=== PATIENT | female | born 1950 | race American Indian/Alaskan Native ===

== ENCOUNTER 2020-01-26 21:35 | Emergency (ER) | payer OTHER ==
[2020-01-26 21:42] VITALS: BMI 39.1
--- OUTSIDE RECORDS SUMMARY | 2020-01-26 21:53 | XMS ---
:1950 Author Organization [facility] Support Name Relationship Address Phone RE Unavailable Unavailable Unavailable WAYLON FULTON DAUGHTER [address] [place] [address] Re-disclosure Warning The records that you are about to access may contain information from federally- assisted alcohol or drug abuse programs. If such information is present, then the following federally mandated warning applies: This information has been disclosed to you from records protected by federal confidentiality rules (42 CFR part 2). The federal rules prohibit you from making any further disclosure of this information unless further disclosure is expressly permitted by the written consent of the person to whom it pertains or as otherwise permitted by 42 CFR part 2. A general authorization for the release of medical or other information is NOT sufficient for this purpose. The Federal rules restrict any use of the information to criminally investigate or prosecute any alcohol or drug abuse patient.The records that you are about to access may contain highly sensitive health information, the redisclosure of which is protected by Article 27-F of the [facility] Public Health law. If you continue you may haveaccess to information: Regarding HIV / AIDS; Provided by facilities licensed or operated by the [facility] Office of Mental Health; or Provided by the [facility] Office for People With Developmental Disabilities. If such information is present, then the following [facility] mandated warning applies: This information has been disclosed to you from confidential records which are protected by state law. State law prohibits you from making any further disclosure of this information without the specific written consent of the person to whom it pertains, or as otherwise permitted by law. Any unauthorized further disclosure in violation of state law may result in a fine or custodial sentence or both. A general authorization for the release of medical or other information is NOT sufficient authorization for further disclosure. Insurance Providers Payer name Policy type Policy ID Covered Covered libertarian's Policy P hipolito / Coverage libertarian ID relationship to [employer] ormation type caba HIP MEDICARE [id number] VIP 1 MED[place]ID [place] [id number] [place] MED[place] [id number] A PART B [facility]
--- NOTE | 2020-01-26 22:55 | PDOC ---
Attending Attestation - Resident Resident Name: LucasJustin - ED Attending Attestation I have performed the following: I have examined & evaluated the patient, The case was reviewed & discussed with the resident, I agree w/resident's findings & plan - HPI HPI: 01/27/20 02:11 see resident hpi - Physicial Exam PE: 01/27/20 02:11 see resident exam - Medical Decision Making 01/27/20 02:11 69-year-old female with history of asthma, morbid obesity and lymphoma complaining of shortness of breath and cough x1 day Patient is improved after duo nebs and IV Solu-Medrol Lung exam on reevaluation yields no wheezing though patient has fine rales throughout We will perform CTA of the chest to rule out PE versus fibrosis versus Covid Patient is feeling much better and requesting discharge, will plan for possible DC pending CT results Discharge - Discharge Information Problems reviewed: Yes Clinical Impression/Diagnosis: Acute dyspnea - Follow up/Referral Referrals: Rosa Aparicio MD [Primary Care Provider] - - Patient Discharge Instructions - Post Discharge Activity
[2020-01-26] MEDS ORDERED: ALBUTEROL SO4 2.5/IPRATROPIUM 0.5 INH SOL 3 ML VIAL.NEB. NEB ONE ×2 (23:01→23:31)
[2020-01-26] MEDS ORDERED: methylPREDNISolone NA SUCC 125 MG/2 ML VIAL IVPUSH ONE (23:12)
--- NOTE | 2020-01-26 23:22 | PDOC ---
History of Present Illness - General Chief Complaint: Shortness of Breath Stated Complaint: SOB Time Seen by Provider: 01/26/20 22:54 History Source: Patient Exam Limitations: No Limitations - History of Present Illness Initial Comments: 01/26/20 23:20 69F with hx.o DM, asthma presents to ED for SOB and wheezing. She began having SOB, wheezing and cough today, unprovoked, improved with home inhaler. The pt contacted her PCP, who suggested that she should be evaluated in the ED. She reports some mild SOB and wheezing currently. Denies CP, LE edema, orthopnea, PND, or hx/o DVT/PE. Allergies: NKDA Tob/Etoh/Rec drugs: neg x3, never smoker PCP: ROS: HEENT: No sinus congestion. No sore throat. CARDIOVASCULAR: No chest pain or shortness of breath RESPIRATORY: +cough, +wheezing GASTROINTESTINAL: No nausea, vomiting, diarrhea or constipation. HEMATOLOGIC/LYMPHATIC: No history of blood clots. PE: GENERAL: AOx3; no apparent distress ENT: moist mucosa, oropharynx clear without exudates CARDIO: RRR, normal S1/S2, no murmurs, rubs, or gallops. LUNGS: No distress, speaks full sentences, CTA bilaterally ABDOMEN: Soft, nontender. No guarding, no rebound. No masses EXTREMITIES: mild LE nonpitting edema, R>L. Pain posterior right knee. SKIN: Warm, Dry, normal turgor. No rashes or lesions noted Assessment and Plan 1. asthma exacerbation 2. ACS r/o 3. PNA 4. DVT r/o Justin Zavala, PGY1 Emergency Medicine Past History - Medical History Allergies/Adverse Reactions: Allergies Allergy/AdvReac Type Severity Reaction Status Date / Time No Known Allergies Allergy Verified 01/26/20 21:42 Home Medications: Ambulatory Orders Bisacodyl [Dulcolax] 5 mg PO PRN PRN 03/05/13 Ca Cmb No.1/Vit D3/B-6/FA/B12 [Vitamin D3 1,000 Unit Tablet] 1 cap PO DAILY 03/05/13 Glipizide [Glipizide Xl] 5 mg PO DAILY 03/05/13 Lisinopril [Prinivil] 20 mg PO DAILY 03/05/13 Polyethylene Glycol 3350 [Miralax 255 gm Btl -] 17 gm PO DAILY 03/05/13 Simvastatin [Zocor -] 40 mg PO HS 03/05/13 metFORMIN HCL [Glucophage -] 500 mg PO DAILY 03/05/13 Pantoprazole Sodium 40 mg PO DAILY #0 tablet. 03/08/13 Cod Liver Oil 1 each PO DAILY 03/31/13 Ibuprofen [Motrin -] 800 mg PO TID PRN #0 04/01/13 Polyethylene Glycol 3350 [Miralax 255 gm Btl] 17 gm PO DAILY #1 bottle 04/01/13 Methylprednisolone [Medrol Dose Alfredo] 4 mg PO ASDIR #21 tablet 01/27/20 Anemia: Yes Asthma: Yes (NO RECENT ATTACK) Cancer: No Cardiac Disorders: No CVA: No COPD: Yes CHF: No Dementia: No Diabetes: Yes GI Disorders: Yes (GERD) Disorders: No HTN: Yes Hypercholesterolemia: Yes Liver Disease: No Seizures: No Thyroid Disease: No - Surgical History Abdominal Surgery: No Appendectomy: No Cardiac Surgery: No Cholecystectomy: No Lung Surgery: No Neurologic Surgery: No Orthopedic Surgery: Yes (TOTAL LEFT KNEE REPLACEMENT-lt) - Psycho-Social/Smoking History Smoking History: Never smoked - Substance Abuse Hx (Audit-C & DAST Scrn) How often the patient has a drink containing alcohol: Never Score: In Men: 4 or > Positive; In Women: 3 or > Positive: 0 Screen Result (Pos requires Nsg. Audit-10AR): Negative In the last yr the pt used illegal drug/Rx for NonMed reason: No Score: Yes response is considered Positive: 0 Screen Result (Positive result requires Nsg. DAST-10): Negative *Physical Exam - Vital Signs Last Vital Signs Temp Pulse Resp BP Pulse Ox 98.6 F 88 18 146/80 100 01/26/20 21:40 01/26/20 21:40 01/26/20 21:40 01/26/20 21:40 01/26/20 21:40 ED Treatment Course - LABORATORY CBC & Chemistry Diagram: 01/26/20 00:35 01/26/20 00:35 Medical Decision Making - Medical Decision Making 01/27/20 00:33 69F p/w wheezing, SOB, cough. On exam, lungs CTA, pt had mild LE edema R>L with posterior knee tenderness. -> LE doppler US to r/o DVT, will do ACS r/o, likely asthma with wheezing and SOB -> will give solu-medrol, duoneb 01/27/20 00:36 LE doppler US negative for DVT. 01/27/20 01:01 CBC wnl D-dimer wnl -> DVT/PE unlikely in context of neg LE doppler US. BNP wnl -> HF unlikely 01/27/20 02:11 On reassessment, lungs had fine crackles bilaterally -> pt reported history of lymphoma, will get CTA chest to eval for pleural effusion. 01/27/20 04:04 CTA chest: No pulmonary embolism. No pleural effusion. -> will d/c pt with medrol pack. Discharge - Discharge Information Problems reviewed: Yes Clinical Impression/Diagnosis: Acute dyspnea Disposition: HOME - Admission No - Additional Discharge Information Prescriptions: Methylprednisolone [Medrol Dose Alfredo] 4 mg PO ASDIR #21 tablet - Follow up/Referral Referrals: Rosa Aparicio MD [Primary Care Provider] - - Patient Discharge Instructions Additional Instructions: You were seen in the emergency department for shortness of breath and wheezing. Your labs and imaging were normal. You were given steroids and nebulizer treatment in the emergency department and sent home with a prescription. Please follow up with your primary care physician regarding your visit to the emergency department. If you experience profound shortness of breath or chest pain please return to the emergency department or call 911. - Post Discharge Activity
[2020-01-26] MEDS ORDERED: methylPREDNISolone NA SUCC 125 MG/2 ML VIAL ONE (23:32)
[2020-01-27 00:54] LABS: BASO % 0.8 % (0-2.0); EOS % 2.4 % (0-4.5); HEMATOCRIT 36.6 % (32.4-45.2); MCH 28.3 pg (25.7-33.7); MCHC 32.8 g/dl (32.0-36.0); MEAN CELL VOLUME 86.3 fl (80-96); MEAN PLT VOLUME 8.4 fl (7.5-11.1); MONO % 7.4 % (3.8-10.2); NEUT % 55.4 % (42.8-82.8); PLATELET COUNT 303 K/MM3 (134-434); RBC 4.24 M/mm3 (3.60-5.2); RDW 16.6 % (11.6-15.6)
[2020-01-27 01:04] LABS: INR 0.97 (0.83-1.09); PROTHROMBIN TIME (PATIENT) 11.9 SEC (9.7-13.0)
[2020-01-27 01:38] LABS: ALBUMIN 3.6 g/dl (3.4-5.0); ALK PHOS 66 U/L (45-117); ANION GAP 6 MMOL/L (8-16); BILIRUBIN,TOTAL 0.2 mg/dL (0.2-1); BLOOD UREA NITROGEN 16.8 mg/dL (7-18); CALCIUM 9.7 mg/dL (8.5-10.1); CHLORIDE 104 mmol/L (98-107); CO2 30 mmol/L (21-32); CREATININE 0.8 mg/dL (0.55-1.3); GLUCOSE,RANDOM 125 mg/dL (74-106); POTASSIUM 4.6 mmol/L (3.5-5.1); SGOT/AST 34 U/L (15-37); SGPT/ALT 29 U/L (13-61); SODIUM 140 mmol/L (136-145); TOT PROT 7.2 g/dl (6.4-8.2)
[2020-01-27 02:08] LABS: N-TERMINAL BNP 12.6 pg/ml (5-125)
[2020-01-27 03:31] VITALS: BP 139/86; PULSE 104; TEMP 98
--- NOTE | 2020-01-27 13:35 | EKG ---
Test Reason : Blood Pressure : / mmHG Vent. Rate : 091 BPM Atrial Rate : 091 BPM P-R Int : 128 ms QRS Dur : 090 ms QT Int : 370 ms P-R-T Axes : 053 -28 032 degrees QTc Int : 455 ms NORMAL SINUS RHYTHM NORMAL ECG WHEN COMPARED WITH ECG OF 06-MAY-2011 11:18, NONSPECIFIC T WAVE ABNORMALITY HAS REPLACED INVERTED T WAVES IN INFERIOR LEADS Confirmed by CARLOS PACHECO MD ([id number]) on 01/27/2020 1:34:45 PM Referred By: Confirmed By:CARLOS PACHECO MD
== END 2020-01-27 04:25 | disposition home or self-care (01) ==
LOC: JER 21:35
PROC: 3E033NZ Introduction of Analgesics, Hypnotics, Sedatives into Peripheral Vein, Percutaneous Approach (ICD-10-PCS; principal; 2020-01-26)
PROC: 3E0F7GC Introduction of Other Therapeutic Substance into Respiratory Tract, Via Natural or Artificial Opening (ICD-10-PCS; 2020-01-26)
DX: R06.09 Other forms of dyspnea (principal)
CPT/HCPCS: 36415; 71045-TC-FY; 71275-TC; 80053; 83735; 83880; 84484; 85025; 85379; 85610; 85730; 93005; 93010; 93970-TC; 99285-25

== ENCOUNTER 2023-08-07 07:14 | Inpatient (IN) | payer OTHER ==
[2023-08-07] MEDS ORDERED: PIPERACILLIN/TAZOB 4.5 GM 4.5 GM/100 ML BAG IVPB ONE (07:53)
[2023-08-07] MEDS ORDERED: ACETAMINOPHEN INJECTION 100 ML IVPB ONE (07:53)
[2023-08-07] MEDS ORDERED: VANCOMYCIN 1 GRAM (PRE-DOCKED) 1,000 MG/250 ML BAG IVPB ONE (07:54)
[2023-08-07 07:57] VITALS: BMI 38.2
[2023-08-07] MEDS: PIPERACILLIN/TAZOB 4.5 GM 4.5 GM in DEXTROSE 5%-WATER - 100 ML IVPB ONE (08:06)
[2023-08-07] MEDS: SODIUM CHLORIDE 1,000 ML IV STA (08:06)
[2023-08-07] MEDS: ACETAMINOPHEN 1000 MG/100 ML BAG IVPB ONE (08:07)
[2023-08-07 08:15] LABS: VENOUS BASE EXCESS -2.4 mmol/L (-2-2); VENOUS O2 SATURATION 44.9 % (70-80); VENOUS PCO2 45.2 mmHg (38-52); VENOUS PH 7.336 (7.310-7.410)
[2023-08-07 08:23] LABS: HEMATOCRIT 36.8 % (32.4-45.2); MCH 28.1 pg (25.7-33.7); MCHC 32.5 g/dl (32.0-36.0); MEAN CELL VOLUME 86.4 fl (80-96); MEAN PLT VOLUME 8.7 fl (7.5-11.1); PLATELET COUNT 271 10^3/uL (134-434); RBC 4.26 M/mm3 (3.60-5.2); RDW 14.8 % (11.6-15.6); WHITE BLOOD COUNT 10.5 K/mm3 (4.0-10.0)
[2023-08-07 08:29] LABS: INR 1.08 (0.83-1.09); PROTHROMBIN TIME (PATIENT) 12.5 SEC (9.7-13.0)
[2023-08-07 08:33] LABS: ACTIVATED PTT 30.3 SECONDS (25.2-36.5)
[2023-08-07 08:35] LABS: POTASSIUM 4.3 mmol/L (3.5-5.1)
[2023-08-07 08:37] LABS: CALCIUM 9.6 mg/dL (8.5-10.1)
[2023-08-07 08:38] LABS: ALBUMIN 3.7 g/dl (3.4-5.0); BLOOD UREA NITROGEN 20.5 mg/dL (7-18); MAGNESIUM 1.3 mg/dL (1.8-2.4)
[2023-08-07 08:41] LABS: CREATININE 1.2 mg/dL (0.55-1.3); PHOSPHOROUS 2.6 mg/dL (2.5-4.9)
[2023-08-07 08:42] LABS: BILIRUBIN,TOTAL 0.7 mg/dL (0.2-1)
[2023-08-07 08:43] LABS: TOT PROT 7.3 g/dl (6.4-8.2)
[2023-08-07] MEDS: VANCOMYCIN 1,000 MG in DEXTROSE 5%-WATER - 250 ML IVPB ONE (08:45)
[2023-08-07 08:46] LABS: N-TERMINAL BNP 26.7 pg/ml (5-450)
[2023-08-07 08:54] LABS: LACTIC ACID 3.5 mmol/L (0.4-2.0)
[2023-08-07] MEDS: IBUPROFEN 800 MG/8 ML IJ IVPB ONE (09:43)
[2023-08-07] MEDS: LACTATED RINGERS SOLUTION 1000 ML INFUS.BAG IV ONE (09:43)
[2023-08-07] MEDS: MAGNESIUM SULFATE IN WATER 2 GM/50 ML IVPB IVPB ONE (09:43)
[2023-08-07] MEDS ORDERED: IBUPROFEN 800 MG/8 ML IJ IVPB ONE (09:47)
[2023-08-07] MEDS ORDERED: MAGNESIUM SULFATE IN WATER 2 GM/50 ML IVPB IVPB ONE (09:47)
[2023-08-07 11:03] LABS: LACTIC ACID 3.7 mmol/L (0.4-2.0)
[2023-08-07 13:18] LABS: LACTIC ACID 3.9 mmol/L (0.4-2.0)
[2023-08-07 13:50] LABS: URINE APPEARANCE CLEAR; URINE BILIRUBIN NEGATIVE (NEGATIVE); URINE COLOR YELLOW; URINE GLUCOSE (UA) 3+ (NEGATIVE); URINE KETONE 1+ (NEGATIVE); URINE LEUK ESTERASE NEGATIVE (NEGATIVE); URINE NITRITE NEGATIVE (NEGATIVE); URINE PROTEIN NEGATIVE (NEGATIVE); URINE UROBILINOGEN 0.2 mg/dL (0.2-1.0)
[2023-08-07] MEDS: LACTATED RINGERS SOLUTION 1,000 ML/1,000 ML INFUS.BAG IV STA (14:27)
[2023-08-07] MEDS ORDERED: MIDAZOLAM HCL 2 MG/2 ML SINGLE DOSE VIAL ONE (14:53)
[2023-08-07] MEDS: MIDAZOLAM HCL 2 MG/2 ML SINGLE DOSE VIAL IVPUSH ONE (15:25)
[2023-08-07] MEDS ORDERED: CEFTRIAXONE 2 GM/100 ML BAG IVPB ONE (16:09)
[2023-08-07] MEDS: AMPICILLIN - 1 GM in SODIUM CHLORIDE 100 ML IVPB ONE (16:17)
[2023-08-07] MEDS: CEFTRIAXONE 2,000 MG in DEXTROSE 5%-WATER - 50 ML IVPB ONE (16:17)
[2023-08-07] MEDS ORDERED: AMPICILLIN SODIUM 2 GM VIAL ONE (16:39)
[2023-08-07] MEDS: AMPICILLIN - 2 GM in SODIUM CHLORIDE 100 ML IVPB ONE (16:44)
[2023-08-07 17:52] LABS: LACTIC ACID 2.1 mmol/L (0.4-2.0)
[2023-08-07] MEDS ORDERED: VANCOMYCIN HCL 1,500 MG in DEXTROSE 5%-WATER - 250 ML IVPB SCH (19:00)
[2023-08-07] MEDS ORDERED: PIPERACILLIN/TAZOB 4.5 GM 4.5 GM in DEXTROSE 5%-WATER 100 ML IVPB SCH (19:00)
[2023-08-07] MEDS: INSULIN ASPART SLIDING SCALE (NOVOLOG) 1 VIAL SQ SCH (19:59)
[2023-08-07] MEDS: SODIUM CHLORIDE 1,000 ML IV SCH (22:05)
[2023-08-07] MEDS: FAMOTIDINE 20 MG TABLET PO SCH (22:06)
[2023-08-07] MEDS: ATORVASTATIN CA 40 MG TABLET (FP) PO SCH (22:06)
[2023-08-07] MEDS: PIPERACILLIN/TAZOB 4.5 GM 4.5 GM in DEXTROSE 5%-WATER 100 ML IVPB SCH ×2 (22:32→23:00)
[2023-08-07] MEDS: VANCOMYCIN PREMIX 1.5 GM 1,500 MG/300 ML BAG IVPB SCH ×2 (22:33→23:50)
[2023-08-07] MEDS: BUDESONIDE/FORMETEROL FUMARATE 160/4.5 mcg INHALER IH SCH (22:40)
[2023-08-07] MEDS: LATANOPROST 0.005% OPHTH SOLN 2.5ML BOTTLE OU SCH (22:40)
[2023-08-07] MEDS: BRIMONIDINE TARTRATE 0.2% OPHTHALMIC 5 ML BOTTLE OU SCH (22:40)
[2023-08-08 08:48] LABS: BASO % 0.1 % (0-2.0); HEMATOCRIT 30.7 % (32.4-45.2); HEMOGLOBIN 10.3 GM/dL (10.7-15.3); LYMPH % 9.9 % (8-40); MCH 28.8 pg (25.7-33.7); MCHC 33.6 g/dl (32.0-36.0); MEAN CELL VOLUME 85.7 fl (80-96); MEAN PLT VOLUME 8.2 fl (7.5-11.1); MONO % 5.5 % (3.8-10.2); NEUT % 83.5 % (42.8-82.8); PLATELET COUNT 216 10^3/uL (134-434); RBC 3.58 M/mm3 (3.60-5.2); RDW 15.1 % (11.6-15.6)
[2023-08-08 09:03] LABS: POTASSIUM 3.6 mmol/L (3.5-5.1)
[2023-08-08 09:14] LABS: BLOOD UREA NITROGEN 16.1 mg/dL (7-18); CALCIUM 8.4 mg/dL (8.5-10.1); MAGNESIUM 1.6 mg/dL (1.8-2.4)
[2023-08-08 09:16] LABS: CREATININE 0.8 mg/dL (0.55-1.3); PHOSPHOROUS 3.6 mg/dL (2.5-4.9)
[2023-08-08 09:17] LABS: BILIRUBIN,TOTAL 0.4 mg/dL (0.2-1); TOT PROT 5.7 g/dl (6.4-8.2)
[2023-08-08 09:29] LABS: ALBUMIN 2.7 g/dl (3.4-5.0)
[2023-08-08] MEDS: PANTOPRAZOLE 20 MG TABLET PO SCH (10:28)
[2023-08-08] MEDS: CEFTRIAXONE 1 GM in DEXTROSE 5%-WATER - 50 ML IVPB SCH (10:28)
[2023-08-08] MEDS: MONTELUKAST NA 10 MG TABLET PO SCH (10:29)
[2023-08-08] MEDS: SERTRALINE HCL 50 MG TABLET (FP) PO SCH (10:29)
[2023-08-09 06:47] VITALS: TEMP 98.4
[2023-08-09 08:50] LABS: BASO % 0.2 % (0-2.0); EOS % 2.4 % (0-4.5); HEMATOCRIT 28.4 % (32.4-45.2); HEMOGLOBIN 9.6 GM/dL (10.7-15.3); LYMPH % 28.4 % (8-40); MCH 28.4 pg (25.7-33.7); MCHC 33.7 g/dl (32.0-36.0); MEAN CELL VOLUME 84.4 fl (80-96); MEAN PLT VOLUME 8.3 fl (7.5-11.1); MONO % 10.7 % (3.8-10.2); NEUT % 58.3 % (42.8-82.8); PLATELET COUNT 218 10^3/uL (134-434); RBC 3.37 M/mm3 (3.60-5.2); RDW 15.2 % (11.6-15.6); WHITE BLOOD COUNT 3.1 K/mm3 (4.0-10.0)
[2023-08-09 09:15] LABS: BLOOD UREA NITROGEN 8.9 mg/dL (7-18); CALCIUM 8.2 mg/dL (8.5-10.1)
[2023-08-09 09:18] LABS: CREATININE 0.7 mg/dL (0.55-1.3)
[2023-08-09 12:36] VITALS: BP 150/70; PULSE 76; RESP 16
== END 2023-08-09 14:08 | disposition home or self-care (01) | DRG 74 ==
LOC: JER 07:14 → JERBED 16:27 → J5S 18:48
PROVIDERS: ADMIT Internal Medicine
DX: E11.43 Type 2 diabetes mellitus with diabetic autonomic (poly)neuropathy (principal); E87.20 Acidosis, unspecified; K31.84 Gastroparesis; K52.9 Noninfective gastroenteritis and colitis, unspecified; I10 Essential (primary) hypertension; E78.5 Hyperlipidemia, unspecified; R11.2 Nausea with vomiting, unspecified; E11.65 Type 2 diabetes mellitus with hyperglycemia; F32.A Depression, unspecified; H40.9 Unspecified glaucoma; K80.20 Calculus of gallbladder without cholecystitis without obstruction; K80.80 Other cholelithiasis without obstruction; K21.9 Gastro-esophageal reflux disease without esophagitis; Z85.72 Personal history of non-Hodgkin lymphomas
CPT/HCPCS: 0241U-QW; 36415; 70450-TC; 71045-TC-FY; 71275-TC; 76705-TC; 80048; 80053; 81003; 82010; 82803; 82962; 83605; 83735; 83880; 84100; 84443; 84484; 85025; 85610; 85730; 86850; 86900; 86901; 87040; 87086; 93005; 93010; 99285-25; J0131